=== PATIENT | female | born 1975 | race Caucasian/White ===

== ENCOUNTER 2020-03-10 11:19 | Day surgery (SDC) | payer OTHER, SELFPAY ==
[~2020-03-10] VITALS: Ht 154.9 cm; Wt 83.9 kg
[~2020-03-10 11:19] MED LIST: ACET-8386 PO; DOCU-299 PO
[2020-03-10] MEDS ORDERED: LIDOCAINE 2% 100 MG/5 ML UJET TP ONE (13:23)
[2020-03-10] MEDS ORDERED: fentaNYL citrate 0.05 MG/ML VIAL ONE (13:23)
== END 2020-03-10 14:30 | disposition home or self-care (01) ==
LOC: MDS 11:19 → MMU 11:20 → MDS 14:30
PROVIDERS: ATTEND Internal Medicine Gastroenterology
DX: D50.9 Iron deficiency anemia, unspecified (principal); Z20.828 Contact with and (suspected) exposure to other viral communicable diseases; E66.9 Obesity, unspecified; Z68.34 Body mass index [BMI] 34.0-34.9, adult
CPT/HCPCS: 45378; 81025; J3010; U0003